=== PATIENT | female | born 1985 | race Caucasian/White ===

== ENCOUNTER 2022-12-04 17:40 | Inpatient (IN) | payer MEDICAID, OTHER ==
[~2022-12-04] VITALS: Ht 167.6 cm; Wt 94.5 kg
[~2022-12-04 17:40] MED LIST: ARIP400S3 IM; DIVA-112 PO; LITH300C3 PO
[2022-12-04] MEDS: HALOPERIDOL 5 MG TABLET PO PRN (21:47)
[2022-12-04] MEDS: LORazepam 2 MG TABLET PO PRN (21:47)
[2022-12-04 21:59] LABS: COVID AG,FIA SOURCE NASAL SWAB
[2022-12-04 22:59] LABS: EOSINOPHILS % (AUTO) 1.7 % (1.0-6.0); HEMATOCRIT 38.3 % (36-46); HEMOGLOBIN 12.5 g/dL (12.0-16.0); LYMPHOCYTES # (AUTO) 3.8 K/uL (1.0-4.8); LYMPHOCYTES % (AUTO) 39.3 % (22.0-44.0); MEAN CORPUSCULAR HEMOGLOBIN 29.4 pg (26.0-34.0); MEAN CORPUSCULAR HGB CONC 32.7 G/dL (31.0-37.0); MEAN CORPUSCULAR VOLUME 90 fL (80-100); MONOCYTES # (AUTO) 0.8 K/uL (0.1-1.0); MONOCYTES % (AUTO) 7.9 % (2.0-9.0); NEUTROPHILS # (AUTO) 4.8 K/uL (1.8-7.7); NEUTROPHILS % (AUTO) 50.1 % (40.0-70.0); PLATELET COUNT (AUTO) 241 K/uL (150-450); RED BLOOD CELL COUNT(AUTO) 4.26 MIL/uL (4.00-5.20); RED CELL DISTRIBUTION WIDTH 14.1 % (11.5-14.5)
[2022-12-04 23:02] LABS: ANION GAP 14 mmol/L (8-16); CALCIUM, TOTAL 9.3 mg/dL (8.8-10.5); CARBON DIOXIDE 28 mmol/L (22-29); CHLORIDE 105 mmol/L (98-107); CREATININE 0.85 mg/dL (0.60-1.30); GLOMERULAR FILTR. RATE CALC > 60 mL/min (>60); GLUCOSE,RANDOM 110 mg/dL (70-110); POTASSIUM 3.8 mmol/L (3.5-5.1); SODIUM SERUM 147 mmol/L (136-145)
[2022-12-05] MEDS ORDERED: LORazepam 2 MG/ML VIAL IM ONE (01:30)
[2022-12-05] MEDS ORDERED: DiphenhydrAMINE HCL 50 MG/ML VIAL IM ONE (01:30)
[2022-12-05] MEDS ORDERED: HALOPERIDOL LACTATE 5 MG/ML VIAL IM ONE (01:30)
[2022-12-05 03:04] VITALS: BP 129/83; PULSE 99; RESP 18; TEMP 98.1; O2SAT 98
[2022-12-05 07:49] LABS: LITHIUM 0.29 mmol/L (0.60-1.20)
[2022-12-05 08:00] LABS: CHOL/HDL RATIO 3.1 (3.9-5.7); THYROID STIMULATING HORMONE 3.2 uIU/mL (0.36-3.74)
[2022-12-05 08:06] VITALS: BP 123/81; PULSE 82; RESP 18; TEMP 98.3; O2SAT 98
[2022-12-05 08:06] LABS: HEMOGLOBIN A1C 4.7 % (3.8-5.6)
[2022-12-05] MEDS: ARIPiprazole 10 MG TABLET PO SCH (10:32)
[2022-12-05] MEDS: LITHIUM CARBONATE 300 MG CAPSULE PO SCH ×2 (10:33→16:10)
[2022-12-05] MEDS: DIVALPROEX SODIUM 500 MG DR TABLET PO SCH ×2 (10:33→16:10)
[2022-12-05] MEDS ORDERED: DOCUSATE SODIUM 100 MG CAPSULE PO PRN (18:30)
[2022-12-05] MEDS ORDERED: PETROLATUM,WHITE 28 GM JELLY TP PRN (18:30)
[2022-12-05] MEDS ORDERED: GuaiFENesin/D-METHORPHAN [SUGAR-FREE] 200-20MG/10 ML SYRUP UDCUP PO PRN (18:30)
[2022-12-05] MEDS ORDERED: CloNIDine HCL 0.1 MG TABLET PO PRN (18:30)
[2022-12-05] MEDS ORDERED: ALBUTEROL SULFATE HFA 90 MCG/PUFF 8 GM INHALER IH PRN (18:30)
[2022-12-05] MEDS ORDERED: MAGNESIUM HYDROXIDE SUSPENSION 30 ML UDCUP PO PRN (18:30)
[2022-12-05] MEDS ORDERED: ONDANSETRON HCL 4 MG TABLET PO PRN (18:30)
[2022-12-05] MEDS ORDERED: LOPERAMIDE HCL 2 MG CAPSULE PO PRN (18:30)
[2022-12-05] MEDS ORDERED: NICOTINE 14 MG/24 HOUR PATCH TD PRN (18:30)
[2022-12-05] MEDS: ZOLPIDEM TARTRATE 10 MG TABLET PO PRN (21:12)
[2022-12-05 22:15] VITALS: BP 121/79; PULSE 79; RESP 18; TEMP 97.9
[2022-12-06 07:48] LABS: HEMOGLOBIN A1C 4.8 % (3.8-5.6)
[2022-12-06 07:59] LABS: CHOL/HDL RATIO 3.3 (3.9-5.7); THYROID STIMULATING HORMONE 2.27 uIU/mL (0.36-3.74)
[2022-12-06] MEDS: LITHIUM CARBONATE 300 MG CAPSULE PO SCH ×2 (08:03→16:05)
[2022-12-06] MEDS: ARIPiprazole 10 MG TABLET PO SCH (08:03)
[2022-12-06] MEDS: DIVALPROEX SODIUM 500 MG DR TABLET PO SCH ×2 (08:03→16:05)
[2022-12-06 08:23] VITALS: BP 135/85; PULSE 70; RESP 17; TEMP 98; O2SAT 97
[2022-12-06 17:15] VITALS: BP 132/91; PULSE 75; RESP 18; TEMP 98; O2SAT 99
[2022-12-06 20:00] VITALS: BP 139/92; PULSE 97; RESP 18; TEMP 97.6; O2SAT 97
[2022-12-07] MEDS: DIVALPROEX SODIUM 500 MG DR TABLET PO SCH ×2 (08:13→16:07)
[2022-12-07] MEDS: LITHIUM CARBONATE 300 MG CAPSULE PO SCH ×2 (08:13→16:07)
[2022-12-07] MEDS: ARIPiprazole 10 MG TABLET PO SCH (08:13)
[2022-12-07 09:57] VITALS: BP 152/97; PULSE 108; RESP 19; TEMP 97.6; O2SAT 99
[2022-12-07] MEDS: ZOLPIDEM TARTRATE 10 MG TABLET PO PRN (21:11)
[2022-12-07] MEDS: LORazepam 2 MG TABLET PO PRN (21:11)
[2022-12-08 02:31] VITALS: BP 136/90; PULSE 92; RESP 18; TEMP 97.9; O2SAT 99
[2022-12-08 07:48] LABS: ANION GAP 9 mmol/L (8-16); CALCIUM, TOTAL 9.1 mg/dL (8.8-10.5); CARBON DIOXIDE 25 mmol/L (22-29); CHLORIDE 108 mmol/L (98-107); CREATININE 0.74 mg/dL (0.60-1.30); GLOMERULAR FILTR. RATE CALC > 60 mL/min (>60); GLUCOSE,RANDOM 90 mg/dL (70-110); SODIUM SERUM 142 mmol/L (136-145)
[2022-12-08 07:57] LABS: LITHIUM 0.31 mmol/L (0.60-1.20)
[2022-12-08] MEDS: DIVALPROEX SODIUM 500 MG DR TABLET PO SCH ×2 (08:31→16:46)
[2022-12-08 08:35] VITALS: BP 135/91; PULSE 100; RESP 18; TEMP 97.9; O2SAT 96
[2022-12-08] MEDS: LITHIUM CARBONATE 300 MG CAPSULE PO SCH ×2 (08:44→16:44)
[2022-12-08] MEDS: ARIPiprazole 10 MG TABLET PO SCH (09:23)
[2022-12-08 20:30] VITALS: BP 135/84; PULSE 100; RESP 18; TEMP 98.2; O2SAT 97
[2022-12-08] MEDS: ZOLPIDEM TARTRATE 10 MG TABLET PO PRN (21:48)
[2022-12-09 08:14] VITALS: BP 119/68; PULSE 76; RESP 18; TEMP 98; O2SAT 96
[2022-12-09] MEDS: ARIPiprazole 10 MG TABLET PO SCH (08:57)
[2022-12-09] MEDS: DIVALPROEX SODIUM 500 MG DR TABLET PO SCH ×2 (08:57→16:24)
[2022-12-09] MEDS: LITHIUM CARBONATE 300 MG CAPSULE PO SCH ×2 (08:58→16:24)
[2022-12-09] MEDS: LORazepam 2 MG TABLET PO PRN ×2 (08:58→17:05)
[2022-12-09 20:14] VITALS: BP 122/70; PULSE 76; RESP 18; TEMP 98; O2SAT 98
[2022-12-10 08:27] VITALS: BP 108/74; PULSE 119; RESP 18; TEMP 97.9; O2SAT 98
[2022-12-10] MEDS: LITHIUM CARBONATE 300 MG CAPSULE PO SCH ×2 (08:33→16:57)
[2022-12-10] MEDS: ARIPiprazole 10 MG TABLET PO SCH (08:33)
[2022-12-10] MEDS: DIVALPROEX SODIUM 500 MG DR TABLET PO SCH ×2 (08:33→16:57)
[2022-12-10] MEDS: LORazepam 2 MG TABLET PO PRN ×2 (08:34→20:24)
[2022-12-10 20:12] VITALS: BP 112/75; PULSE 108; RESP 18; TEMP 98; O2SAT 98
[2022-12-11 08:35] VITALS: BP 119/74; PULSE 78; RESP 16; TEMP 97.9; O2SAT 99
[2022-12-11 09:34] VITALS: RESP 16
[2022-12-11] MEDS: ARIPiprazole 10 MG TABLET PO SCH (09:34)
[2022-12-11] MEDS: ACETAMINOPHEN 325 MG TABLET PO PRN (09:34)
[2022-12-11] MEDS: DIVALPROEX SODIUM 500 MG DR TABLET PO SCH ×2 (09:34→16:21)
[2022-12-11] MEDS: LITHIUM CARBONATE 300 MG CAPSULE PO SCH ×2 (09:34→16:21)
[2022-12-11 10:34] VITALS: RESP 16
[2022-12-11] MEDS: HALOPERIDOL 5 MG TABLET PO PRN (14:45)
[2022-12-11] MEDS: LORazepam 2 MG TABLET PO PRN ×2 (14:45→19:51)
[2022-12-11 20:05] VITALS: BP 119/68; PULSE 100; RESP 18; TEMP 98
[2022-12-11] MEDS: ZOLPIDEM TARTRATE 10 MG TABLET PO PRN (21:32)
[2022-12-12] MEDS: LITHIUM CARBONATE 300 MG CAPSULE PO SCH ×2 (08:15→16:41)
[2022-12-12] MEDS: ARIPiprazole 10 MG TABLET PO SCH (08:15)
[2022-12-12] MEDS: DIVALPROEX SODIUM 500 MG DR TABLET PO SCH ×2 (08:15→16:41)
[2022-12-12 08:23] VITALS: BP 116/81; PULSE 117; RESP 18; TEMP 98.4; O2SAT 98
[2022-12-12] MEDS: LORazepam 2 MG TABLET PO PRN ×2 (08:24→21:38)
[2022-12-12] MEDS: HALOPERIDOL 5 MG TABLET PO PRN (08:24)
[2022-12-12] MEDS: ACETAMINOPHEN 325 MG TABLET PO PRN (16:44)
[2022-12-12 20:03] VITALS: BP 116/70; PULSE 100; RESP 17; TEMP 98; O2SAT 98
[2022-12-12] MEDS: ZOLPIDEM TARTRATE 10 MG TABLET PO PRN (21:37)
[2022-12-13] MEDS: LORazepam 2 MG TABLET PO PRN ×2 (07:50→20:17)
[2022-12-13] MEDS: HALOPERIDOL 5 MG TABLET PO PRN (07:50)
[2022-12-13] MEDS: LITHIUM CARBONATE 300 MG CAPSULE PO SCH ×2 (08:00→16:45)
[2022-12-13] MEDS: DIVALPROEX SODIUM 500 MG DR TABLET PO SCH ×2 (08:00→16:46)
[2022-12-13] MEDS: ARIPiprazole 10 MG TABLET PO SCH (08:00)
[2022-12-13 08:27] VITALS: BP 126/83; PULSE 100; RESP 18; TEMP 98; O2SAT 96
[2022-12-13] MEDS: MAG HYDROX/AL HYDROX/SIMETH ES 30 ML SUSPENSION UDCUP PO PRN (16:57)
[2022-12-13 20:10] VITALS: BP 103/59; PULSE 94; RESP 17; TEMP 96.4; O2SAT 99
[2022-12-13] MEDS: ZOLPIDEM TARTRATE 10 MG TABLET PO PRN (20:17)
[2022-12-14] MEDS: LORazepam 2 MG TABLET PO PRN ×3 (00:43→17:44)
[2022-12-14] MEDS: HALOPERIDOL 5 MG TABLET PO PRN ×2 (00:44→17:44)
[2022-12-14] MEDS: LITHIUM CARBONATE 300 MG CAPSULE PO SCH ×2 (08:14→16:17)
[2022-12-14] MEDS: DIVALPROEX SODIUM 500 MG DR TABLET PO SCH ×2 (08:14→16:17)
[2022-12-14] MEDS: ARIPiprazole 10 MG TABLET PO SCH (08:15)
[2022-12-14 12:32] VITALS: BP 122/75; PULSE 80; RESP 18; TEMP 98.1; O2SAT 98
[2022-12-14 20:36] VITALS: BP 118/72; PULSE 90; RESP 17; TEMP 97.6; O2SAT 97
[2022-12-14] MEDS: ZOLPIDEM TARTRATE 10 MG TABLET PO PRN (20:58)
[2022-12-15 06:56] LABS: GLUCOMETER DEV NAME(LOC) POC.BV
[2022-12-15] MEDS: ARIPiprazole 10 MG TABLET PO SCH (08:18)
[2022-12-15] MEDS: LITHIUM CARBONATE 300 MG CAPSULE PO SCH ×2 (08:18→16:37)
[2022-12-15] MEDS: DIVALPROEX SODIUM 500 MG DR TABLET PO SCH ×2 (08:18→16:37)
[2022-12-15 08:21] VITALS: BP 125/74; PULSE 100; RESP 18; TEMP 98.6; O2SAT 97
[2022-12-15] MEDS: MAG HYDROX/AL HYDROX/SIMETH ES 30 ML SUSPENSION UDCUP PO PRN (17:44)
[2022-12-15 20:00] VITALS: BP 112/72; PULSE 82; RESP 18; TEMP 98
[2022-12-15] MEDS: LORazepam 2 MG TABLET PO PRN (21:12)
[2022-12-16] MEDS: DIVALPROEX SODIUM 500 MG DR TABLET PO SCH ×2 (08:14→16:04)
[2022-12-16] MEDS: ARIPiprazole 10 MG TABLET PO SCH (08:14)
[2022-12-16] MEDS: LITHIUM CARBONATE 300 MG CAPSULE PO SCH ×2 (08:14→16:04)
[2022-12-16 11:02] VITALS: BP 109/63; PULSE 116; RESP 16; TEMP 98.2; O2SAT 98
[2022-12-16] MEDS: MAG HYDROX/AL HYDROX/SIMETH ES 30 ML SUSPENSION UDCUP PO PRN (14:17)
[2022-12-16] MEDS: LORazepam 2 MG TABLET PO PRN (17:30)
[2022-12-17 00:18] VITALS: RESP 18
[2022-12-17 04:10] VITALS: BP 118/70; PULSE 86; RESP 18; TEMP 98
[2022-12-17] MEDS: DIVALPROEX SODIUM 500 MG DR TABLET PO SCH ×2 (08:00→16:48)
[2022-12-17] MEDS: ARIPiprazole 10 MG TABLET PO SCH (08:00)
[2022-12-17] MEDS: LITHIUM CARBONATE 300 MG CAPSULE PO SCH ×2 (08:00→16:56)
[2022-12-17 08:30] VITALS: RESP 16
[2022-12-17 16:57] VITALS: TEMP 98.6
[2022-12-17] MEDS: LORazepam 2 MG TABLET PO PRN (19:11)
[2022-12-17 20:20] VITALS: BP 112/78; PULSE 120; RESP 18; TEMP 97.8; O2SAT 96
[2022-12-17 21:08] VITALS: TEMP 97.8
[2022-12-18] VITALS (8 sets, daily range): BP systolic 126; BP diastolic 90; PULSE 100; RESP 18–20; TEMP 97.5–98.4; O2SAT 97–98
[2022-12-18] MEDS: DIVALPROEX SODIUM 500 MG DR TABLET PO SCH ×2 (08:00→16:29)
[2022-12-18] MEDS: ARIPiprazole 10 MG TABLET PO SCH (08:00)
[2022-12-18] MEDS: LITHIUM CARBONATE 300 MG CAPSULE PO SCH ×2 (08:00→16:29)
[2022-12-18] MEDS: LORazepam 2 MG TABLET PO PRN (08:00)
[2022-12-18] MEDS ORDERED: ARIPiprazole ER SUSPENSION 400 MG PRE-FILLED DUAL CHAMBER SYRINGE IM SCH (10:00)
[2022-12-19 01:09] VITALS: TEMP 97.2
[2022-12-19 02:45] VITALS: RESP 18; TEMP 97.4
[2022-12-19] MEDS: IBUPROFEN 400 MG TABLET PO PRN (02:46)
[2022-12-19] MEDS: LORazepam 2 MG TABLET PO PRN ×2 (02:46→13:29)
[2022-12-19 04:50] VITALS: TEMP 97.4
[2022-12-19 08:20] LABS: LITHIUM 0.61 mmol/L (0.60-1.20)
[2022-12-19 08:25] VITALS: BP 107/73; PULSE 97; RESP 18; TEMP 97.2; O2SAT 98
[2022-12-19] MEDS: DIVALPROEX SODIUM 500 MG DR TABLET PO SCH (08:54)
[2022-12-19] MEDS: ARIPiprazole 15 MG TABLET PO SCH (08:55)
[2022-12-19] MEDS: LITHIUM CARBONATE 300 MG CAPSULE PO SCH ×2 (08:55→16:30)
[2022-12-19] MEDS: DIVALPROEX SODIUM 250 MG DR TABLET PO SCH (16:30)
[2022-12-19 21:12] VITALS: BP 104/62; PULSE 93; RESP 17; TEMP 97.2; O2SAT 98
[2022-12-19] MEDS: ZOLPIDEM TARTRATE 10 MG TABLET PO PRN (22:13)
[2022-12-20 07:25] LABS: GLUCOMETER DEV NAME(LOC) POC.BV
[2022-12-20] MEDS: ARIPiprazole 15 MG TABLET PO SCH (08:28)
[2022-12-20] MEDS: DIVALPROEX SODIUM 250 MG DR TABLET PO SCH ×2 (08:28→17:36)
[2022-12-20] MEDS: LITHIUM CARBONATE 300 MG CAPSULE PO SCH ×2 (08:28→17:36)
[2022-12-20 09:28] VITALS: BP 110/73; PULSE 111; RESP 18; TEMP 97.9; O2SAT 98
[2022-12-20] MEDS: LORazepam 2 MG TABLET PO PRN ×2 (10:05→20:40)
[2022-12-20 20:38] VITALS: BP 117/77; PULSE 103; RESP 18; TEMP 98.2; O2SAT 98
[2022-12-20] MEDS: ZOLPIDEM TARTRATE 10 MG TABLET PO PRN (21:38)
[2022-12-21] MEDS: LORazepam 2 MG TABLET PO PRN ×3 (07:35→20:11)
[2022-12-21] MEDS: DIVALPROEX SODIUM 250 MG DR TABLET PO SCH ×2 (08:02→16:37)
[2022-12-21] MEDS: ARIPiprazole 15 MG TABLET PO SCH (08:02)
[2022-12-21] MEDS: LITHIUM CARBONATE 300 MG CAPSULE PO SCH ×2 (08:02→16:37)
[2022-12-21 09:25] VITALS: BP 108/72; PULSE 92; RESP 18; TEMP 98; O2SAT 97
[2022-12-21] MEDS: ZOLPIDEM TARTRATE 10 MG TABLET PO PRN (20:11)
[2022-12-21 22:38] VITALS: RESP 18
[2022-12-21] MEDS: IBUPROFEN 400 MG TABLET PO PRN (22:38)
[2022-12-22] MEDS: DIVALPROEX SODIUM 250 MG DR TABLET PO SCH (08:27)
[2022-12-22] MEDS: LITHIUM CARBONATE 300 MG CAPSULE PO SCH (08:27)
[2022-12-22] MEDS: LORazepam 2 MG TABLET PO PRN (08:27)
[2022-12-22] MEDS: ARIPiprazole 15 MG TABLET PO SCH (08:27)
[2022-12-22 08:44] VITALS: BP 115/76; PULSE 100; RESP 16; TEMP 98; O2SAT 96
[2022-12-22] MEDS ORDERED: ARIP15TA27 PO ×2 (09:41→12:40)
[2022-12-22] MEDS ORDERED: LITH600C5 PO (09:44)
[2022-12-22] MEDS ORDERED: DIVA-111 PO ×2 (09:46→12:40)
[2022-12-22] MEDS ORDERED: LITH300C3 PO (12:40)
== END 2022-12-22 14:00 | disposition home or self-care (01) | DRG 753 ==
LOC: EMS 17:41 → B3A 12-05 02:10
PROVIDERS: ADMIT Psychiatry & Neurology Child & Adolescent Psychiatry; ATTEND Psychiatry & Neurology Child & Adolescent Psychiatry
DX: F31.4 Bipolar disorder, current episode depressed, severe, without psychotic features (principal); E87.0 Hyperosmolality and hypernatremia; R45.851 Suicidal ideations; F20.0 Paranoid schizophrenia; F41.9 Anxiety disorder, unspecified; Z20.822 Contact with and (suspected) exposure to COVID-19; F12.90 Cannabis use, unspecified, uncomplicated; B18.2 Chronic viral hepatitis C; G47.00 Insomnia, unspecified; Z88.0 Allergy status to penicillin; Z79.899 Other long term (current) drug therapy
CPT/HCPCS: 80048; 80061; 80164; 80178; 83036; 84439; 84443; 84703; 85025; 99285; J0401; J1200; J1630; J2060